=== PATIENT | male | born 1975 | race African-American/Black ===

== ENCOUNTER 2019-11-18 15:04 | Emergency (ER) | payer OTHER ==
--- NOTE | 2019-11-18 15:34 | RAD ---
Chest one view HISTORY: Chest pain. FINDINGS: Cardiac silhouette and pulmonary vasculature are unremarkable. Mediastinum is midline. No c onfluent airspace consolidation or evidence of pneumothorax. assistant manager trainee leads overlie the chest. Thin pointed metallic device overlying the left lateral cost ophrenic angle is favored to represent extrinsic artifact. IMPRESSION : No active cardiopulmonary abnormalities are demonstrated.
[2019-11-18 15:49] LABS: #Eosinphils 0.2 thou/uL (0.0-0.7); #Lymphocytes 0.7 thou/uL (1.20-3.40); #Monocytes 0.5 thou/uL (0.11-0.59); #Neutrophils 2.8 thou/uL (1.40-6.50); %Basophils 0.9 % (0.0-1.0); %Lymphocytes 17.1 % (21.0-51.0); %Monocytes 11.3 % (0.0-10.0); %Neutrophils 65.7 % (42.0-75.0); Hemoglobin 16.7 g/dL (14.0-18.0); Mean Corpuscular HGB CONC 34.5 g/dL (32.0-36.0); Mean Platelet Volume 8.7 fL (7.4-10.4); Platelet Count 200 thou/uL (130-400); RBC Distribution Width 11.9 % (11.5-14.5); Red Blood Cell (RBC) Count 5.58 mill/uL (4.70-6.10); White Blood Cell (WBC) Count 4.3 thou/uL (4.8-10.8)
[2019-11-18 16:18] LABS: ALT (SGPT) 19 U/L (8-55); AST (SGOT) 16 U/L (5-34); Albumin 4.8 g/dL (3.5-5.0); Alkaline Phosphatase 60 U/L (40-110); Anion Gap 13 mmol/L (10-20); BUN (Urea Nitrogen) 10 mg/dL (8.9-20.6); Bilirubin, Total 0.8 mg/dL (0.2-1.2); Calc. Creatinine Clearance 0 mL/min (70-130); Calcium 9.6 mg/dL (7.8-10.44); Carbon Dioxide 29 mmol/L (22-29); Chloride 99 mmol/L (98-107); Estimated GFR-MDRD 68; Globulin 2.7 g/dL (2.4-3.5); Glucose 75 mg/dL (70-105); Potassium 4.1 mmol/L (3.5-5.1); Protein, Total 7.5 g/dL (6.0-8.3); Sodium 137 mmol/L (136-145)
--- NOTE | 2019-11-22 13:11 | EKG ---
Test Reason : CHEST PAIN Blood Pressure : / mmHG Vent. Rate : 099 BPM Atrial Rate : 099 BPM P-R Int : 156 ms QRS Dur : 068 ms QT Int : 300 ms P-R-T Axes : 056 029 053 degrees QTc Int : 385 ms Normal sinus rhythm Nonspecific ST and T wave abnormality Abnormal ECG Confirmed by ADONIS DANIEL DO ([id number]), field map editor RADAMES IBARRA ([id number] on 11/22/2019 1:10:44 PM Referred By: FREDY Confirmed By:ADONIS DANIEL DO
== END 2019-11-18 19:46 ==
LOC: ERS 15:04
DX: R07.2 Precordial pain (principal); I10 Essential (primary) hypertension; Z79.899 Other long term (current) drug therapy
CPT/HCPCS: 36415; 71045; 80053; 84484; 85025; 93005

== ENCOUNTER 2020-01-01 13:04 | Emergency (ER) | payer OTHER ==
[2020-01-01] MEDS ORDERED: Ibuprofen 800 MG TAB ONE (13:37)
[2020-01-01] MEDS ORDERED: Metoclopramide HCl 10 MG TAB ONE (13:37)
--- NOTE | 2020-01-01 14:08 | CT ---
CT head noncontrast HISTORY: Injury. FINDINGS: There is no evidence of acute intracranial hemorrhage or infarct. The ventricles appear nor mal in size, shape and position. There is no mass effect or shift of midline structures. Visualized paranasal sinuses remain well aerated. IMPRESSION : No acute intracranial abnormalities are demonstrated.
== END 2020-01-01 14:25 ==
LOC: ERS 13:04
DX: S09.90XA Unspecified injury of head, initial encounter (principal); I10 Essential (primary) hypertension; Z87.891 Personal history of nicotine dependence; Z79.899 Other long term (current) drug therapy; X58.XXXA Exposure to other specified factors, initial encounter
CPT/HCPCS: 70450